=== PATIENT | male | born 2000 | race Caucasian/White ===

== ENCOUNTER 2023-07-25 22:54 | Emergency (ER) | payer MEDICAID ==
[~2023-07-25] VITALS: Ht 162.6 cm; Wt 55.0 kg
[2023-07-25 22:58] VITALS: BP 128/71; PULSE 83; RESP 18; TEMP 98.4; O2SAT 99
== END 2023-07-26 03:25 | disposition left against medical advice (07) ==
LOC: ER 22:54
DX: S09.90XA Unspecified injury of head, initial encounter (principal); R56.9 Unspecified convulsions; X58.XXXA Exposure to other specified factors, initial encounter; Y93.89 Activity, other specified; Y92.89 Other specified places as the place of occurrence of the external cause; Y99.8 Other external cause status
CPT/HCPCS: 99283